=== PATIENT | female | born 1940 | race Caucasian/White ===

== ENCOUNTER 2017-08-06 22:03 | Inpatient (IN) | payer OTHER, SELFPAY ==
[~2017-08-06] VITALS: Ht 152.4 cm; Wt 55.5 kg
[~2017-08-06 22:03] MED LIST: HERBS; LORA1 PO; NAPR550 PO; Percocet 5-3251 EACH PO; RXHYDACE PO; Roxicodone5 MG PO
[2017-08-06 23:02] LABS: BASOPHILS ABSOLUTE AUTO 0.04 K/mm3 (0.00-0.23); BASOPHILS PERCENT AUTO 0 % (0-2); EOSINOPHILS ABSOLUTE AUTO 0.04 K/mm3 (0.00-0.68); EOSINOPHILS PERCENT AUTO 0 % (0-6); Hematocrit 32.5 % (33.0-51.0); Hemoglobin 10.5 g/dL (11.5-16.0); IMMATURE GRAN ABSOLUTE AUTO 0.03 K/mm3 (0.00-0.10); IMMATURE GRAN PERCENT AUTO 0 % (0-1); LYMPHOCYTES ABSOLUTE AUTO 0.98 K/mm3 (0.84-5.20); LYMPHOCYTES PERCENT AUTO 9 % (21-46); MONOCYTES ABSOLUTE AUTO 0.49 K/mm3 (0.16-1.47); MONOCYTES PERCENT AUTO 5 % (4-13); Mean Corpuscular HGB 28.2 pg (26.0-34.0); Mean Corpuscular HGB Conc 32.3 g/dL (31.5-36.5); Mean Corpuscular Volume 87 fL (80-100); Mean Platelet Volume 10.6 fL (9.1-12.4); NEUTROPHILS ABSOLUTE AUTO 9.01 K/mm3 (1.96-9.15); NEUTROPHILS PERCENT AUTO 85 % (41-73); Platelet Count 304 K/mm3 (150-400); RDW Coefficient Variation 12.9 % (11.7-14.2); Red Blood Cell Count 3.73 M/mm3 (3.80-5.20); White Blood Cell Count 10.59 K/mm3 (4.00-11.30)
[2017-08-06 23:22] LABS: Alanine Aminotransfer (ALT/SGP 20 U/L (12-78); Albumin, Blood 3.1 g/dL (3.4-5.0); Albumin/Globulin Ratio 0.7 (0.8-1.8); Alk Phos 157 U/L (50-136); Anion Gap 9 mmol/L (6-16); Aspartate Aminotrans (AST/SGOT 18 U/L (12-37); Bilirubin, Total 0.2 mg/dL (0.1-1.0); Blood Urea Nitrogen 11 mg/dL (8-24); Bun/Creatinine Ratio 20.2 (12.0-20.0); CO2, Blood 24 mmol/L (21-32); Calcium, Blood 8.1 mg/dL (8.5-10.1); Chloride, Blood 108 mmol/L (98-108); Creatinine, Blood 0.54 mg/dL (0.40-1.00); Globulin, Blood 4.2 g/dL (2.2-4.0); Glomerular Filtration Rate >60 (60-); Glucose, Blood 146 mg/dL (70-99); Potassium, Blood 3.4 mmol/L (3.5-5.5); Sodium, Blood 141 mmol/L (136-145); Total Protein, Blood 7.3 g/dL (6.4-8.2)
[2017-08-07 01:16] LABS: International Normalized Ratio 1.01; Prothrombin Time Results 10.5 Sec (9.7-11.5)
[2017-08-09 05:22] LABS: BASOPHILS ABSOLUTE AUTO 0.02 K/mm3 (0.00-0.23); BASOPHILS PERCENT AUTO 0 % (0-2); EOSINOPHILS ABSOLUTE AUTO 0.04 K/mm3 (0.00-0.68); EOSINOPHILS PERCENT AUTO 0 % (0-6); Hematocrit 26.9 % (33.0-51.0); Hemoglobin 9.1 g/dL (11.5-16.0); IMMATURE GRAN ABSOLUTE AUTO 0.04 K/mm3 (0.00-0.10); IMMATURE GRAN PERCENT AUTO 0 % (0-1); LYMPHOCYTES ABSOLUTE AUTO 1.71 K/mm3 (0.84-5.20); LYMPHOCYTES PERCENT AUTO 17 % (21-46); MONOCYTES ABSOLUTE AUTO 1.13 K/mm3 (0.16-1.47); MONOCYTES PERCENT AUTO 11 % (4-13); Mean Corpuscular HGB 28.6 pg (26.0-34.0); Mean Corpuscular HGB Conc 33.8 g/dL (31.5-36.5); Mean Corpuscular Volume 85 fL (80-100); Mean Platelet Volume 10.6 fL (9.1-12.4); NEUTROPHILS ABSOLUTE AUTO 7.12 K/mm3 (1.96-9.15); NEUTROPHILS PERCENT AUTO 71 % (41-73); Platelet Count 237 K/mm3 (150-400); RDW Coefficient Variation 12.9 % (11.7-14.2); RDW Standard Deviation 39.9 fL (35.1-46.3); Red Blood Cell Count 3.18 M/mm3 (3.80-5.20); White Blood Cell Count 10.06 K/mm3 (4.00-11.30)
[2017-08-09 05:43] LABS: Anion Gap 7 mmol/L (6-16); Blood Urea Nitrogen 10 mg/dL (8-24); Bun/Creatinine Ratio 19.8 (12.0-20.0); CO2, Blood 26 mmol/L (21-32); Calcium, Blood 8.4 mg/dL (8.5-10.1); Chloride, Blood 102 mmol/L (98-108); Glomerular Filtration Rate >60 (60-); Glucose, Blood 126 mg/dL (70-99); Potassium, Blood 3.7 mmol/L (3.5-5.5); Sodium, Blood 135 mmol/L (136-145)
== END 2017-08-10 16:31 | DRG 482 ==
LOC: ER 22:03 → SURS 08-07 01:07
PROVIDERS: Hospitalist; Orthopaedic Surgery; Physician Assistant
PROC: 0QS734Z Reposition Left Upper Femur with Internal Fixation Device, Percutaneous Approach (ICD-10-PCS; principal; 2017-08-08 09:00)
DX: S72.142A Displaced intertrochanteric fracture of left femur, initial encounter for closed fracture (principal); D64.9 Anemia, unspecified; E87.6 Hypokalemia; I10 Essential (primary) hypertension; M25.552 Pain in left hip; W18.30XA Fall on same level, unspecified, initial encounter; Z85.3 Personal history of malignant neoplasm of breast; Z86.73 Personal history of transient ischemic attack (TIA), and cerebral infarction without residual deficits; Z90.12 Acquired absence of left breast and nipple
CPT/HCPCS: 36415; 71045; 73502; 80048; 80053; 85025; 85610; 85730; 93005; 93010; 96374; 96375; 96376; 97110; 97162; 97165; 97530; 97535; 99285; C1713; G8978; G8979; G8987; G8988; J0330; J0690; J1170; J2405; J3010; J3480; J7120

== ENCOUNTER 2018-01-01 14:02 | Observation (INO) | payer OTHER, SELFPAY ==
[~2018-01-01] VITALS: Ht 157.5 cm; Wt 56.7 kg
[2018-01-01 15:49] LABS: BASOPHILS ABSOLUTE AUTO 0.04 K/mm3 (0.00-0.23); BASOPHILS PERCENT AUTO 1 % (0-2); EOSINOPHILS ABSOLUTE AUTO 0.03 K/mm3 (0.00-0.68); EOSINOPHILS PERCENT AUTO 0 % (0-6); Hematocrit 33.7 % (33.0-51.0); Hemoglobin 10.8 g/dL (11.5-16.0); IMMATURE GRAN ABSOLUTE AUTO 0.02 K/mm3 (0.00-0.10); IMMATURE GRAN PERCENT AUTO 0 % (0-1); LYMPHOCYTES ABSOLUTE AUTO 1.29 K/mm3 (0.84-5.20); LYMPHOCYTES PERCENT AUTO 18 % (21-46); MONOCYTES ABSOLUTE AUTO 0.73 K/mm3 (0.16-1.47); MONOCYTES PERCENT AUTO 10 % (4-13); Mean Corpuscular HGB 26.9 pg (26.0-34.0); Mean Corpuscular Volume 84 fL (80-100); Mean Platelet Volume 10.4 fL (9.1-12.4); NEUTROPHILS PERCENT AUTO 70 % (41-73); Platelet Count 287 K/mm3 (150-400); RDW Coefficient Variation 15.2 % (11.7-14.2); RDW Standard Deviation 46.2 fL (35.1-46.3); Red Blood Cell Count 4.01 M/mm3 (3.80-5.20); White Blood Cell Count 7.11 K/mm3 (4.00-11.30)
[2018-01-01 16:11] LABS: Alanine Aminotransfer (ALT/SGP 27 U/L (12-78); Albumin, Blood 3.1 g/dL (3.4-5.0); Albumin/Globulin Ratio 0.6 (0.8-1.8); Alk Phos 151 U/L (50-136); Anion Gap 9 mmol/L (6-16); Aspartate Aminotrans (AST/SGOT 25 U/L (12-37); Bilirubin, Total 0.7 mg/dL (0.1-1.0); Blood Urea Nitrogen 7 mg/dL (8-24); Bun/Creatinine Ratio 14.6 (12.0-20.0); CO2, Blood 26 mmol/L (21-32); Calcium, Blood 8.9 mg/dL (8.5-10.1); Chloride, Blood 108 mmol/L (98-108); Creatinine, Blood 0.48 mg/dL (0.40-1.00); Globulin, Blood 4.8 g/dL (2.2-4.0); Glomerular Filtration Rate >60 (60-); Glucose, Blood 93 mg/dL (70-99); Potassium, Blood 3.6 mmol/L (3.5-5.5); Sodium, Blood 143 mmol/L (136-145); Total Protein, Blood 7.9 g/dL (6.4-8.2); Troponin I <0.015 ng/mL (0.000-0.040)
[2018-01-01 16:15] LABS: Thyroid Stimulating Hormone 0.388 uIU/mL (0.360-4.800)
[2018-01-01] MEDS ORDERED: ASCO500 PO (18:08)
[2018-01-01] MEDS ORDERED: CHOL10002 PO (18:09)
[2018-01-01] MEDS ORDERED: B Complex-Foli1 EACH PO (18:10)
[2018-01-01] MEDS ORDERED: MULTI VITAMIN1 EACH PO (18:11)
[2018-01-01] MEDS ORDERED: Calcium + Vita1 EACH PO (18:12)
[2018-01-01] MEDS ORDERED: Vitamin E100 UNIT PO (18:13)
[2018-01-03] MEDS ORDERED: DOCU100 PO (10:07)
[2018-01-03] MEDS ORDERED: HYDR1TAB94 PO (10:08)
== END 2018-01-03 12:49 | disposition home or self-care (01) ==
LOC: ER 14:02 → MEDS 14:03 → ER 16:58 → MEDS 16:58 → ENPENDDIS 01-03 10:00 → MEDS 01-03 12:49
PROVIDERS: Emergency Medicine
DX: M80.08XA Age-related osteoporosis with current pathological fracture, vertebra(e), initial encounter for fracture (principal); M53.3 Sacrococcygeal disorders, not elsewhere classified; G47.33 Obstructive sleep apnea (adult) (pediatric); I10 Essential (primary) hypertension; M19.90 Unspecified osteoarthritis, unspecified site; Z85.3 Personal history of malignant neoplasm of breast; F44.4 Conversion disorder with motor symptom or deficit; Z99.89 Dependence on other enabling machines and devices; Z86.718 Personal history of other venous thrombosis and embolism; Z88.6 Allergy status to analgesic agent; Z79.01 Long term (current) use of anticoagulants
CPT/HCPCS: 36415; 72131; 80053; 84443; 84484; 85025; 93005; 93010; 94762; 97110; 97161; 99285; G0378; G8978; G8979

== ENCOUNTER 2018-11-05 10:50 | Inpatient (IN) | payer OTHER ==
[~2018-11-05] VITALS: Ht 149.9 cm; Wt 65.8 kg
[~2018-11-05 10:50] MED LIST changes: +ASCO500 PO; +B Complex-Foli1 EACH PO; +CHOL10002 PO; +Calcium + Vita1 EACH PO; +DOCU100 PO; +HYDR1TAB94 PO; +MULTI VITAMIN1 EACH PO; +Vitamin E100 UNIT PO
[2018-11-05 11:50] LABS: BASOPHILS ABSOLUTE AUTO 0.01 K/mm3 (0.00-0.23); BASOPHILS PERCENT AUTO 0 % (0-2); EOSINOPHILS PERCENT AUTO 0 % (0-6); Hematocrit 29.9 % (33.0-51.0); Hemoglobin 9.6 g/dL (11.5-16.0); IMMATURE GRAN ABSOLUTE AUTO 0.09 K/mm3 (0.00-0.10); IMMATURE GRAN PERCENT AUTO 1 % (0-1); LYMPHOCYTES ABSOLUTE AUTO 1.13 K/mm3 (0.84-5.20); LYMPHOCYTES PERCENT AUTO 8 % (21-46); MONOCYTES ABSOLUTE AUTO 0.89 K/mm3 (0.16-1.47); MONOCYTES PERCENT AUTO 6 % (4-13); Mean Corpuscular HGB 28.9 pg (26.0-34.0); Mean Corpuscular HGB Conc 32.1 g/dL (31.5-36.5); Mean Corpuscular Volume 90 fL (80-100); Mean Platelet Volume 11.6 fL (9.1-12.4); NEUTROPHILS ABSOLUTE AUTO 12.24 K/mm3 (1.96-9.15); NEUTROPHILS PERCENT AUTO 85 % (41-73); Platelet Count 255 K/mm3 (150-400); RDW Coefficient Variation 13.6 % (11.7-14.2); RDW Standard Deviation 44.7 fL (35.1-46.3); Red Blood Cell Count 3.32 M/mm3 (3.80-5.20); White Blood Cell Count 14.36 K/mm3 (4.00-11.30)
[2018-11-05 12:12] LABS: Alanine Aminotransfer (ALT/SGP 28 U/L (12-78); Albumin, Blood 3.1 g/dL (3.4-5.0); Albumin/Globulin Ratio 0.7 (0.8-1.8); Alk Phos 99 U/L (50-136); Anion Gap 11 mmol/L (6-16); Aspartate Aminotrans (AST/SGOT 30 U/L (12-37); Bilirubin, Total 0.5 mg/dL (0.1-1.0); Blood Urea Nitrogen 27 mg/dL (8-24); Bun/Creatinine Ratio 43.3 (12.0-20.0); CO2, Blood 23 mmol/L (21-32); Calcium, Blood 9.9 mg/dL (8.5-10.1); Chloride, Blood 109 mmol/L (98-108); Creatinine, Blood 0.62 mg/dL (0.40-1.00); Globulin, Blood 4.3 g/dL (2.2-4.0); Glomerular Filtration Rate >60 (60-); Glucose, Blood 165 mg/dL (70-99); Potassium, Blood 3.7 mmol/L (3.5-5.5); Sodium, Blood 143 mmol/L (136-145); Total Protein, Blood 7.4 g/dL (6.4-8.2)
[2018-11-05] MEDS ORDERED: ALEN70 PO (12:48)
[2018-11-05 17:06] LABS: Source, Urine Catheter
[2018-11-05 17:29] LABS: Bilirubin, Urine Neg (Neg); Blood, Urine 2+ (Neg); Glucose Qualitative, Urine Neg (Neg); Ketones, Urine 2+ (Neg); Leukocyte Esterase, Urine 1+ (Neg); Nitrite, Urine Neg (Neg); Protein, Urine 1+ (Neg); Urobilinogen, Urine 1+ (Normal)
[2018-11-05 17:45] LABS: Percent Saturation 11.3 % (15.0-50.0)
--- NOTE | 2018-11-05 17:58 | NUR ---
PT VERIFIED TO BE DNR BY OTHER RN Gavi, PURPLE BRACELET PLACED.
[2018-11-05 18:02] LABS: Appearance, Urine Cloudy (Clear); Color, Urine Yellow (P-Yellow)
[2018-11-05 18:06] LABS: Hyaline Casts 0-2 /lpf (0-2)
[2018-11-05 18:08] LABS: Bacteria Many /hpf; Red Blood Cells, Urine 0-2 /hpf (0-2); Squamous Epithelial Cells Few /hpf (Few); White Blood Cells, Urine 0-2 /hpf (0-5)
--- NOTE | 2018-11-05 18:57 | NUR ---
SHIFT SUMMARY PROVIDER IN TO SEE PT TODAY. PT SCHEDULED FOR SURGERY IN MORNING. PT REPORTS A LOT OF PAIN WITH MOVEMENT, BUT OTHERWISE HAS BEEN RESTING IN BED. PT HAS BEEN CONFUSED AT TIMES. CATHETER IN PLACED BY FEMALE MICRO PALEONTOLOGIST. IT IS SECURED AND DRAINING. PT HAS BEEN USING BEDPAN WHEN NEEDED. PT DRINKING FLUIDS AND ATE A YOGURT THIS EVENING. FAMILY HAS BEEN IN TO SEE PT TODAY.
--- NOTE | 2018-11-05 21:46 | NUR ---
2146: ASSUMED CARE FROM PREVIOUS RN. PT RESTING COMFORTABLY IN BED AND DENIES PAIN OR NEED @ THIS TIME. CALL LIGHT IN REACH.
[2018-11-06 05:12] LABS: BASOPHILS ABSOLUTE AUTO 0.03 K/mm3 (0.00-0.23); BASOPHILS PERCENT AUTO 0 % (0-2); EOSINOPHILS ABSOLUTE AUTO 0.01 K/mm3 (0.00-0.68); EOSINOPHILS PERCENT AUTO 0 % (0-6); Hematocrit 21.8 % (33.0-51.0); Hemoglobin 7.1 g/dL (11.5-16.0); IMMATURE GRAN ABSOLUTE AUTO 0.08 K/mm3 (0.00-0.10); IMMATURE GRAN PERCENT AUTO 1 % (0-1); LYMPHOCYTES ABSOLUTE AUTO 2.11 K/mm3 (0.84-5.20); LYMPHOCYTES PERCENT AUTO 14 % (21-46); MONOCYTES ABSOLUTE AUTO 1.45 K/mm3 (0.16-1.47); MONOCYTES PERCENT AUTO 9 % (4-13); Mean Corpuscular HGB 28.9 pg (26.0-34.0); Mean Corpuscular HGB Conc 32.6 g/dL (31.5-36.5); Mean Corpuscular Volume 89 fL (80-100); Mean Platelet Volume 11.5 fL (9.1-12.4); NEUTROPHILS ABSOLUTE AUTO 11.73 K/mm3 (1.96-9.15); NEUTROPHILS PERCENT AUTO 76 % (41-73); Platelet Count 201 K/mm3 (150-400); RDW Coefficient Variation 14.2 % (11.7-14.2); RDW Standard Deviation 45.7 fL (35.1-46.3); Red Blood Cell Count 2.46 M/mm3 (3.80-5.20); White Blood Cell Count 15.41 K/mm3 (4.00-11.30)
[2018-11-06 05:27] LABS: Anion Gap 5 mmol/L (6-16); Blood Urea Nitrogen 22 mg/dL (8-24); Bun/Creatinine Ratio 37.2 (12.0-20.0); CO2, Blood 26 mmol/L (21-32); Calcium, Blood 8.1 mg/dL (8.5-10.1); Chloride, Blood 114 mmol/L (98-108); Creatinine, Blood 0.59 mg/dL (0.40-1.00); Glomerular Filtration Rate >60 (60-); Glucose, Blood 108 mg/dL (70-99); Potassium, Blood 4.5 mmol/L (3.5-5.5); Sodium, Blood 145 mmol/L (136-145)
--- NOTE | 2018-11-06 07:39 | NUR ---
SUMMARY: NO ACUTE CHANGES THIS SHIFT. VSS, AFEBRILE, PT SLEPT WELL; ALERT AND ANSWERS QUESTIONS APPROPRIATELY. NPO AFTER MIDNIGHT, NEW 18G PERIPHERAL IV AND SURGICAL PACKET PREPARED IN ANTICIPATION OF ORIF OF LEFT HIP TODAY WITH DR. PHAN. AWAIT SON'S ARRIVAL PRE-OP FOR CONSENTS AND COMPLETION OF ADMIT HISTROY.
--- NOTE | 2018-11-06 10:21 | NUR ---
PT LEFT FOR SURGERY AT 6233
--- NOTE | 2018-11-06 10:34 | NUR ---
SHIFT ASSESSMENT SHIFT ASSESSMENT PERFORMED WITH COLLIN CRANE OILER. DOCUMENTATION REVIEWED; THIS RN AGREES WITH ASSESSMENT DOCUMENTATION.
--- NOTE | 2018-11-06 11:09 | NUR ---
11/06/18 1109 Estefany Bond PT ENTERED OR WITH YANG CATHETER
--- NOTE | 2018-11-06 15:10 | NUR ---
REPORT CALLED TO GIANA OLIVER IN ICU.
--- NOTE | 2018-11-06 15:15 | NUR ---
ARIVAL: PT ARIVES TO ICU 3. NO FAMILY NOTED IN WAITING ROOM. PT IS UNABLE TO STATE NAME OR DATE OF . OPENS EYES TO VERBAL STEMULI. L PEDAL PULSES ARE STRONG. L LEG WRAPPED FROM JUST BELOW HIP DOWN TO ANKLE, COLOR APPEARS TO BE PINK, LIMB WARM TO TOUCH, AND PT ABLE TO MOVE TOES. WILL ASSESS FURTHER AND CONTINUE TO MONITOR.
--- NOTE | 2018-11-06 16:05 | NUR ---
MENTATION: PT IS ABLE TO STATE NAME AND DATE OF , IS AWARE OF HER SURROUNDINGS AND FAMILY. PT IS STILL DROUSY AND WANTING TO SLEEP.
--- NOTE | 2018-11-06 16:21 | NUR ---
CALL TO EMILIE: CALLED TO [facility] IV FLUIDS TO RUN. RECEIVED ORDER TO RUN THE ORDER FOR D5W1/2NS KCL @ 80 ML/HR. RECEIVED ORDERS TO CALL HOSPITALIST ON CASE TO DISCUSS PT ANEMIA AND POSSIBLE HORMONAL OR IRON THEROPY D/T PT BEING ONE OF ADAN'S WHITNESS AND NO ACEPTANCE OF BLOOD PRODUCTS.
--- NOTE | 2018-11-06 16:30 | NUR ---
HOSPITALIST: CALL TO DR STEINBERG TO UPDATE OF PT ARIVAL TO UNIT AFTER SURGICAL PROCEDURE. INFORMED OF PT BEING ONE OF MALIKS WHITNESSES AND WILL NOT ACCEPT BLOOD PRODUCTS AND DR PHAN'S REQUEST TO FOLLOW UP ON PT ANEMIA LUIS. DR STEINBERG STATES HE WILL REVIEW AND PLACE ORDERS.
--- NOTE | 2018-11-06 16:49 | NUR ---
UPDATE SON: UPDATED ELVIN THE SON OF MEDICATIONS TO BE GIVEN TO ASSIST WITH LOW HGB TO PREVENT NEED FOR BLOOD TRANSFUSION D/T PT NOT ACCEPTING BLOOD PRODUCTS. SON LEAVING AT THIS TIME. GAVE UNIT PHONE NUMBER.
--- NOTE | 2018-11-06 18:01 | NUR ---
SHIFT SUMMARY: NO ACUTE DISTRESS TO PT SINCE ARIVAL TO UNIT. PT STATES MINIMAL PAIN AT THIS TIME. SCD IN PLACE. PT RECEIVED IRON AND EPOGEN AND IRON PANNEL DRAWN. VSS WILL CONTINUE TO MONITOR AND REPORT TO PARAG RN.
[2018-11-06 18:12] LABS: Percent Saturation 12.4 % (15.0-50.0)
--- NOTE | 2018-11-06 19:15 | NUR ---
ASSUMING CARE OF PT AT THIS TIME. PT REPORT RECEIVED AT BEDSIDE WITH OFFGOING NURSE, ARNAUD OLIVER. PT LAYING IN BED, SLEEPING UPON ENTERING THE ROOM. VS STABLE - SEE VS FS. PT DOES NOT APPEAR TO BE IN DISTRESS AT THIS TIME. WILL REVIEW PLAN OF CARE.
--- NOTE | 2018-11-06 19:30 | NUR ---
ASSESSMENT PT CALM, QUIET, COOPERATIVE, RESPONDS TO VERBAL STIMULI, SPONT OPENS EYES, A&O TO SELF AND PLACE, UNABLE TO STATE DATE/TIME/EVENT, OCC SLOW TO RESPOND, SLIGHT CONFUSION, FOLLOWS COMMANDS. SENSATION INTACT. DENIES N/T. PT HUTTON. WEAKNESS NOTED. PT WIGGLES TOES. PT ART SPECIALIST EQUALLY. PT ASSISTS WITH REPOSITIONING. PT C/O L LEG PAIN/DISCOMFORT THAT STARTED POST SURGERY. MEDICATED WITH TYLENOL AND UTILIZED NONPHARM METHODS. PT STATES PAIN IS TOLERABLE AFTER ADMINISTEIRNG TYLENOL. PT SLEEPING IN BED WITH DECREASED STIMULI. LUNGS CLEAR, LOWER LOBES DIMINIHSED. PT ON 2L NC. OXY SAT >95%> RR 14. DENIES SOB. NO COUGHING. SHALLOW BREAHTING. IS AT BEDSIDE. EDUCATED PT ABOUT IS. PT DEMONSTRATED HOW TO IS. AFEBRILE. ST. HR 100'S. BP STABLE - SEE VS FS. STRONG PULSES. WARM, PINK SKIN. POST SURGERICAL DRESSING TO LLE - DRESSING C/D/I. HYPOACTIVE BT X4 QUADRANTS. ABD SOFT, NONTENDER. PT STATES ABD DIST IS NORMAL. NO N/V. NO BM. PT TOLERATING PO WATER. F/C: CLEAR YELLOW URINE NOTED. PIV X1. D5W 1/2NS WITH 20 KCL AT 80 ML/HR.
[2018-11-07 03:33] LABS: BASOPHILS ABSOLUTE AUTO 0.01 K/mm3 (0.00-0.23); BASOPHILS PERCENT AUTO 0 % (0-2); EOSINOPHILS PERCENT AUTO 0 % (0-6); Hemoglobin 6.9 g/dL (11.5-16.0); IMMATURE GRAN ABSOLUTE AUTO 0.05 K/mm3 (0.00-0.10); IMMATURE GRAN PERCENT AUTO 0 % (0-1); LYMPHOCYTES ABSOLUTE AUTO 1.62 K/mm3 (0.84-5.20); LYMPHOCYTES PERCENT AUTO 13 % (21-46); MONOCYTES ABSOLUTE AUTO 1.26 K/mm3 (0.16-1.47); MONOCYTES PERCENT AUTO 10 % (4-13); Mean Corpuscular HGB Conc 31.4 g/dL (31.5-36.5); Mean Corpuscular Volume 89 fL (80-100); Mean Platelet Volume 11.6 fL (9.1-12.4); NEUTROPHILS ABSOLUTE AUTO 9.79 K/mm3 (1.96-9.15); NEUTROPHILS PERCENT AUTO 77 % (41-73); Platelet Count 190 K/mm3 (150-400); RDW Coefficient Variation 13.9 % (11.7-14.2); RDW Standard Deviation 44.8 fL (35.1-46.3); Red Blood Cell Count 2.46 M/mm3 (3.80-5.20); White Blood Cell Count 12.73 K/mm3 (4.00-11.30)
[2018-11-07 03:49] LABS: Anion Gap 3 mmol/L (6-16); Blood Urea Nitrogen 10 mg/dL (8-24); Bun/Creatinine Ratio 17.9 (12.0-20.0); CO2, Blood 27 mmol/L (21-32); Calcium, Blood 7.5 mg/dL (8.5-10.1); Chloride, Blood 112 mmol/L (98-108); Creatinine, Blood 0.56 mg/dL (0.40-1.00); Glomerular Filtration Rate >60 (60-); Glucose, Blood 133 mg/dL (70-99); Sodium, Blood 142 mmol/L (136-145)
--- NOTE | 2018-11-07 04:00 | NUR ---
DR. HERBERTH KEVIN IN ICU AT THIS TIME. PT CONTINUES TO REFUSE BLOOD TRANSFUSIONS AT THIS TIME. INFORMED DR. KEVIN OF AM LABS. NO NEW ORDERS AT THIS TIME.
--- NOTE | 2018-11-07 05:16 | NUR ---
SHIFT ASSESSMENT NO ACUTE CHANGES NOTED T/O SHIFT. PT SLEPT T/O SHIFT. PT CALM, QUIET, COOPERATIVE, RESPONDS TO VERBAL STIMULI, SPONT OPENS EYES, A&O TO SELF AND PLACE, UNABLE TO STATE DATE/TIME/EVENT, OCC SLOW TO RESPOND, SLIGHT CONFUSION, FOLLOWS COMMANDS. SENSATION INTACT. DENIES N/T. PT HUTTON. WEAKNESS NOTED. PT WIGGLE TOES. PT DRAG CAR RACER EQUALLY. PT ASSISTS WITH REPOSITIONING. PT C/O L LEG PAIN/DISCOMFORT THAT STARTED POST SURGERY T/O SHIFT. MEDICATED WITH TYLENOL AND UTILIZED NONPHARM METHODS T/O SHIFT. PT STATED PAIN IS TOLERABLE AFTER ADMNSITEIRNG TYLENOL. PT SLEEPS WITH DECREASED STIMULI. LUNGS CLEAR, LOWER LOBES DIMINIHSED. PT ON 2L NC WHILE SLEEPING. OXY SAT >90% ON 2L WHILE SLEEPING. OXY SAT <90% WHILE ON RA AND SLEEPING. PT ON RA WHILE AWAKE. OXY SAT >90% WHILE ON RA AND AWAKE. DENIES SOB. NO COUGHING. SHALLOW BREATHING. IS AT BEDSIDE. AFEBRILE. SR TO ST WITH OCC PVC'S AND PAC'S. HR 80'S TO 110'S. BP STABLE - SEE VS FS. STRONG PULSES. WARM, PINK SKIN. POST SURGERICAL DRESSING TO LLE - DRESSING C/D/I. HYPOACTIVE BT X4 QUADRANTS. ABD SOFT, NONTENDER. PT STATES ABD DIST IS NORMAL. NO N/V. NO BM. PT TOLERATES PO WATER. F/C: CLEAR, YELLOW URINE NOTED. PIV X1. D5W 1/2 NS WITH 20 MEQ OF KCL AT 80 ML/HR. WILL CONT TO MONITOR PT AND WILL PROVIDE BEDSIDE REPORT TO ONCOMING NURSE THIS AM.
--- NOTE | 2018-11-07 07:36 | NUR ---
ASSUMED CARE: RECEIVED REPORT FROM NOC BENITO Díaz WHEN ENTERING ROOM PT APPEARS TO BE SLEEPING WITH WASH CLOTH COVERING HER EYES. WAKES EASILY. UPON ASSESSMENT OF PT L LEG, SHE LUCINA OUT IN PAIN WITH MOVEMENT OF HER ANKLE. FOOD AND ANKLE OF THE L LEG APPEAR TO HAVE SOME MILD NON PITTING EDEMA. PULSES ARE PRESENT AND STRONG, L FOOT IS WARM AND PINK. D51/2NS /C 20KCL IS CURRENTLY RUNNING AT 80ML/HR, NEW BAG SPIKED AND RUNNING. NO ACUTE DISTRESS NOTED. WILL ASSESS FURTHER AND CONTINUE TO MONITOR.
--- NOTE | 2018-11-07 08:44 | NUR ---
L FOOT NUMBNESS & PAIN: DISCUSSED WITH TEACHER EMOTIONALLY IMPAIRED ABOUT EDEMA IN L FOOT AND ANKLE, PAIN IN ANKLE AND SOME NUMBNESS. RECOMENDED LOOSENING WRAP SLIGHTLY TO SEE IF RESOLVES. LOOSENED WRAP AT THIS TIME RIGHT ABOVE L FOOT AND ANKLE. WILL CONTINUE TO MONITOR AND ASSESS NEED TO NOTIFY DR. HELM AT BEDSIDE.
--- NOTE | 2018-11-07 17:31 | NUR ---
SHIFT SUMMARY PT WAS AN ICU TRANSFER AT 1430 TODAY. STABLE AND DOING WELL. PAIN MANAGED WITH 5MG OXYCODONE AND 650MG TYLENOL. WORKED WITH THERAPY THIS AFTERNOON AND DANGLED, 2 PERSON MAX ASSIST WITH FWW AND GAITBELT. ALERT AND ORIENTATED X3, WITH HISTORY OF DEMENTIA. DRESSING ON LEFT HIP IS C/D/I WITH NED WRAP IN PLACE. ON 2L OF OXYGEN WITH 99% SATURATION.
[2018-11-08 04:30] LABS: BASOPHILS ABSOLUTE AUTO 0.03 K/mm3 (0.00-0.23); BASOPHILS PERCENT AUTO 0 % (0-2); EOSINOPHILS ABSOLUTE AUTO 0.19 K/mm3 (0.00-0.68); EOSINOPHILS PERCENT AUTO 2 % (0-6); Hematocrit 19.4 % (33.0-51.0); Hemoglobin 6.1 g/dL (11.5-16.0); IMMATURE GRAN ABSOLUTE AUTO 0.09 K/mm3 (0.00-0.10); IMMATURE GRAN PERCENT AUTO 1 % (0-1); LYMPHOCYTES ABSOLUTE AUTO 2.07 K/mm3 (0.84-5.20); LYMPHOCYTES PERCENT AUTO 16 % (21-46); MONOCYTES ABSOLUTE AUTO 1.49 K/mm3 (0.16-1.47); MONOCYTES PERCENT AUTO 12 % (4-13); Mean Corpuscular HGB 28.8 pg (26.0-34.0); Mean Corpuscular HGB Conc 31.4 g/dL (31.5-36.5); Mean Corpuscular Volume 92 fL (80-100); Mean Platelet Volume 11.4 fL (9.1-12.4); NEUTROPHILS ABSOLUTE AUTO 8.77 K/mm3 (1.96-9.15); NEUTROPHILS PERCENT AUTO 69 % (41-73); NRBC ABSOLUTE 0.03 K/mm3 (0.00-0.02); NRBC Auto 0.2 /100 WBC (0.0-0.2); Platelet Count 189 K/mm3 (150-400); RDW Coefficient Variation 14.3 % (11.7-14.2); RDW Standard Deviation 46.7 fL (35.1-46.3); Red Blood Cell Count 2.12 M/mm3 (3.80-5.20); White Blood Cell Count 12.64 K/mm3 (4.00-11.30)
[2018-11-08 04:46] LABS: Anion Gap 4 mmol/L (6-16); Blood Urea Nitrogen 10 mg/dL (8-24); Bun/Creatinine Ratio 17.1 (12.0-20.0); CO2, Blood 26 mmol/L (21-32); Calcium, Blood 7.4 mg/dL (8.5-10.1); Chloride, Blood 112 mmol/L (98-108); Creatinine, Blood 0.58 mg/dL (0.40-1.00); Glomerular Filtration Rate >60 (60-); Glucose, Blood 101 mg/dL (70-99); Potassium, Blood 4.4 mmol/L (3.5-5.5); Sodium, Blood 142 mmol/L (136-145)
--- NOTE | 2018-11-08 05:18 | NUR ---
SUMMARY POD 2 S/P LEFT DISTAL FEMUR ORIF. PT DID GREAT DURING THE NIGHT. SLEPT T/O SHIFT. DRESSING TO LLE IS CDI AND KEPT ELEVATED. GOOD CIRC CHECKS. H/H CONTINUES TO DROP BUT REMAINS ASYMPTOMATIC. PLAN FOR PT/OT TO HELP INCREASE MOBILITY IF PT TOLERATES. TREY PERALTA WILL BE DC'D THIS AM. CALL LIGHT IN REACH. WILL REPORT OFF TO NEXT SHIFT.
--- NOTE | 2018-11-08 13:15 | NUR ---
Initial palliative care consult: Mayela is an 78 year old lady who was admitted on 11/05/18 for a femur fracture. She has a history of NAYELI, dementia, breast CA, osteoporosis. During my visit with her today, she is alert and oriented but somewhat forgetful at times. She states that she lives alone. She receives meals on wheels and per staff report, [facility] volunteers are the ones who found her down with a femur fracture. She states her son and DIL live locally and help her when she needs assistance. She states she cares for herself but doesn't do housework anymore. She reports her family helps out when needed. She had an ORIF on 11/06 to repair her fracture. Nursing reports that she is unable to bear much weight at this time and is unable to stand form more than a couple seconds. Pt will benefit from SNF for rehab as going home alone would put her at high risk for falls and would be unsafe at this time. Nursing reports trying tylenol along with the narcotic pain medication to improve her pain management. No family currently in room visiting during my visit. Toward the end of the visit, pt is closing eyes and appears to be drifting off. Staff reports she was medicated for pain prior to my arrival. Appetite is fair at this time. Pt voices no requests. PC will follow pt for symptom management and will work with pt and family for a safe discharge plan.
--- NOTE | 2018-11-08 16:28 | NUR ---
SHIFT SUMMARY PT WORKED WITH THERAPY ALTHOUGH IS MAKING VERY SLOW PROGRESS. REPORTS FEELING TIRED AND WAS EDUCATED ON ANEMIA. PAIN MANAGEMENT IS A SLIGHT STRUGGLE. 1 OXYCODONE DOES NOT MANAGE PAIN WELL WHILE 2 MAKES HER DROWSY. WILL PERHAPS TRY NORCO INSTEAD THIS IS ON THE EMAR. TOLERATED DIET. INCONTINENT IN ATTENDS.
--- NOTE | 2018-11-09 05:43 | NUR ---
SHIFT SUMMARY PT ALERT T/O SHIFT. POD#3 L HIP PIN; NED WRAP FROM L THIGH OVER L FOOT CDI T/O SHIFT. RA; PT DENIES SOB, CP, NAUSEA AND DIZZINESS T/O SHIFT. PAIN MANAGED WITH PO MEDICATIONS PER EMAR. BLE ELEVATED; SCD'S TO BLE'S. ATTENDS IN PLACE; PT ASSISTED WITH BED SAPRROW PRN. SIDE RAILS AND BED ALARM FOR SAFETY. CALL LIGHT IN REACH; PT DEMONSTRATES USE. WCTM UNTIL REPORT TO DAY SHIFT RN.
[2018-11-09 13:20] LABS: Hemoglobin 6.5 g/dL (11.5-16.0)
--- NOTE | 2018-11-09 15:12 | NUR ---
SHIFT SUMMARY PT HAS BEEN UPBEAT TODAY. PLEASANT AND COOPERATIVE. SHOWING IMPROVEMENT WITH THERAPY, EDEMA AND PAIN MANAGEMENT. POSS D/C TO SNF TODAY.
--- NOTE | 2018-11-09 15:34 | NUR ---
ASSUMED CARE OF PATIENT AT THIS TIME. PT ASSISTED TO BEDPAN WITH COLOR MATCHER FOR BM. WILL CONT TO MONITOR AND TREAT.
--- NOTE | 2018-11-09 17:34 | NUR ---
discharge: DC TO SNF AT THIS TIME. REPORT GIVEN TO ACCEPTING RN. IV DC'D PRIOR TO DISCHARGE. PT MEDICATED FOR PAIN. TRANSFER VIA [facility].
== END 2018-11-09 17:49 | DRG 481 ==
LOC: ER 10:50 → ICUE 13:19 → SURS 13:19 → ICUE 11-06 15:15 → SURS 11-07 14:39
PROVIDERS: Emergency Medicine; Internal Medicine; Orthopaedic Surgery; ADMIT Internal Medicine
PROC: 0QPC04Z Removal of Internal Fixation Device from Left Lower Femur, Open Approach (ICD-10-PCS; 2018-11-06)
PROC: 0QSC04Z Reposition Left Lower Femur with Internal Fixation Device, Open Approach (ICD-10-PCS; principal; 2018-11-06 08:30)
DX: S72.302A Unspecified fracture of shaft of left femur, initial encounter for closed fracture (principal); E44.0 Moderate protein-calorie malnutrition; D62 Acute posthemorrhagic anemia; M97.02XA Periprosthetic fracture around internal prosthetic left hip joint, initial encounter; S72.452A Displaced supracondylar fracture without intracondylar extension of lower end of left femur, initial encounter for closed fracture; M81.0 Age-related osteoporosis without current pathological fracture; F03.90 Unspecified dementia, unspecified severity, without behavioral disturbance, psychotic disturbance, mood disturbance, and anxiety; I10 Essential (primary) hypertension; Z66 Do not resuscitate; Z68.24 Body mass index [BMI] 24.0-24.9, adult; W19.XXXA Unspecified fall, initial encounter; G47.33 Obstructive sleep apnea (adult) (pediatric); Z85.3 Personal history of malignant neoplasm of breast; Z86.718 Personal history of other venous thrombosis and embolism; D63.8 Anemia in other chronic diseases classified elsewhere; D50.9 Iron deficiency anemia, unspecified
CPT/HCPCS: 36415; 71045; 73502; 73552; 80048; 80053; 81001; 82728; 83540; 83550; 85014; 85018; 85025; 93005; 93010; 96361; 96374; 96375; 97110; 97162; 97530; 99284-25; A9270-GY; C1713; C1769; J0690; J0885; J1100; J1170; J2370; J2405; J2704; J2916; J3010; J7030; J7120

== ENCOUNTER 2019-06-02 09:03 | Emergency (ER) | payer OTHER ==
[~2019-06-02] VITALS: Ht 152.4 cm; Wt 47.6 kg
[~2019-06-02 09:03] MED LIST changes: +ALEN70 PO
[2019-06-02] MEDS ORDERED: VIT1CAPS12 (09:15)
[2019-06-02] MEDS ORDERED: Refresh Eye Dr1 EACH OP (09:16)
[2019-06-02] MEDS ORDERED: ASCO500 PO (09:16)
[2019-06-02] MEDS ORDERED: ACET500 PO (09:16)
[2019-06-02] MEDS ORDERED: TOCO1000 PO (09:17)
[2019-06-02] MEDS ORDERED: ERGO400 PO (09:17)
[2019-06-02 10:03] LABS: BASOPHILS ABSOLUTE AUTO 0.04 K/mm3 (0.00-0.23); BASOPHILS PERCENT AUTO 1 % (0-2); EOSINOPHILS ABSOLUTE AUTO 0.16 K/mm3 (0.00-0.68); EOSINOPHILS PERCENT AUTO 3 % (0-6); Hematocrit 36.5 % (33.0-51.0); Hemoglobin 11.7 g/dL (11.5-16.0); IMMATURE GRAN ABSOLUTE AUTO 0.01 K/mm3 (0.00-0.10); IMMATURE GRAN PERCENT AUTO 0 % (0-1); LYMPHOCYTES ABSOLUTE AUTO 1.47 K/mm3 (0.84-5.20); LYMPHOCYTES PERCENT AUTO 25 % (21-46); MONOCYTES ABSOLUTE AUTO 0.51 K/mm3 (0.16-1.47); MONOCYTES PERCENT AUTO 9 % (4-13); Mean Corpuscular HGB 28.1 pg (26.0-34.0); Mean Corpuscular HGB Conc 32.1 g/dL (31.5-36.5); Mean Corpuscular Volume 88 fL (80-100); Mean Platelet Volume 10.7 fL (9.1-12.4); NEUTROPHILS PERCENT AUTO 63 % (41-73); Platelet Count 340 K/mm3 (150-400); RDW Coefficient Variation 13.2 % (11.7-14.2); RDW Standard Deviation 42.6 fL (35.1-46.3); Red Blood Cell Count 4.16 M/mm3 (3.80-5.20); White Blood Cell Count 5.89 K/mm3 (4.00-11.30)
[2019-06-02 10:18] LABS: Alanine Aminotransfer (ALT/SGP 17 U/L (12-78); Albumin, Blood 2.8 g/dL (3.4-5.0); Albumin/Globulin Ratio 0.7 (0.8-1.8); Alk Phos 104 U/L (50-136); Anion Gap 6 mmol/L (6-16); Aspartate Aminotrans (AST/SGOT 13 U/L (12-37); Bilirubin, Total 0.3 mg/dL (0.1-1.0); Blood Urea Nitrogen 8 mg/dL (8-24); Bun/Creatinine Ratio 15.1 (12.0-20.0); CO2, Blood 28 mmol/L (21-32); Calcium, Blood 8.5 mg/dL (8.5-10.1); Chloride, Blood 106 mmol/L (98-108); Creatinine, Blood 0.53 mg/dL (0.40-1.00); Globulin, Blood 4.1 g/dL (2.2-4.0); Glomerular Filtration Rate >60 (60-); Glucose, Blood 111 mg/dL (70-99); Potassium, Blood 3.4 mmol/L (3.5-5.5); Sodium, Blood 140 mmol/L (136-145); Total Protein, Blood 6.9 g/dL (6.4-8.2); Troponin I <0.015 ng/mL (0.000-0.040)
[2019-06-02 12:09] LABS: Source, Urine Voided
[2019-06-02 12:12] LABS: Bilirubin, Urine Neg (Neg); Blood, Urine 1+ (Neg); Glucose Qualitative, Urine Neg (Neg); Ketones, Urine 1+ (Neg); Leukocyte Esterase, Urine 1+ (Neg); Nitrite, Urine Neg (Neg); Protein, Urine Neg (Neg); Urobilinogen, Urine NORM (Normal)
[2019-06-02 12:27] LABS: Appearance, Urine Cloudy (Clear); Color, Urine Yellow (P-Yellow)
[2019-06-02 12:32] LABS: White Blood Cells, Urine 25-50 /hpf (0-5)
[2019-06-02 12:33] LABS: Bacteria Many /hpf; Squamous Epithelial Cells Few /hpf (Few)
[2019-06-02] MEDS ORDERED: Pepcid20 MG PO (13:00)
== END 2019-06-02 13:36 | disposition home or self-care (01) ==
LOC: ER 09:03
PROVIDERS: Emergency Medicine
DX: R10.13 Epigastric pain (principal); R82.81 Pyuria; F32.9 Major depressive disorder, single episode, unspecified; Z85.3 Personal history of malignant neoplasm of breast; Z88.8 Allergy status to other drugs, medicaments and biological substances; Z79.899 Other long term (current) drug therapy
CPT/HCPCS: 71045; 80053; 81001; 83690; 83880; 84484; 85025; 93005; 93010; 96361; 96374; 96375; 99285-25; J2405; J3010; J7030

== ENCOUNTER 2019-09-28 23:44 | Emergency (ER) | payer OTHER ==
[~2019-09-28] VITALS: Ht 152.4 cm; Wt 54.4 kg
[~2019-09-28 23:44] MED LIST changes: +ACET500 PO; +ERGO400 PO; +Pepcid20 MG PO; +Refresh Eye Dr1 EACH OP; +TOCO1000 PO; +VIT1CAPS12
[2019-09-28] MEDS ORDERED: AMIT10 PO (23:54)
[2019-09-28] MEDS ORDERED: CALCIUM CARBON500 M3 PO (23:55)
[2019-09-28] MEDS ORDERED: B-121000 MC4 PO (23:55)
[2019-09-28] MEDS ORDERED: ESCITALOPRAM OX10 M1 PO (23:55)
[2019-09-28] MEDS ORDERED: ALEN70 PO (23:56)
[2019-09-28] MEDS ORDERED: THERA1 EACH PO (23:56)
[2019-09-28] MEDS ORDERED: Ferrous Sulfat325 M2 PO (23:56)
[2019-09-28] MEDS ORDERED: PANT40 PO (23:57)
[2019-09-28] MEDS ORDERED: MULTIPLE VITAM1 EACH PO (23:57)
[2019-09-28] MEDS ORDERED: TRIM100 PO (23:57)
[2019-09-28] MEDS ORDERED: Fruity C250 MG PO (23:58)
[2019-09-28] MEDS ORDERED: VITAMIN D35000 UNI2 PO (23:58)
[2019-09-28] MEDS ORDERED: ACET500 PO (23:58)
[2019-09-29 01:28] LABS: BASOPHILS ABSOLUTE AUTO 0.06 K/mm3 (0.00-0.23); BASOPHILS PERCENT AUTO 1 % (0-2); EOSINOPHILS ABSOLUTE AUTO 0.36 K/mm3 (0.00-0.68); EOSINOPHILS PERCENT AUTO 4 % (0-6); Hematocrit 33.7 % (33.0-51.0); Hemoglobin 10.8 g/dL (11.5-16.0); IMMATURE GRAN ABSOLUTE AUTO 0.04 K/mm3 (0.00-0.10); IMMATURE GRAN PERCENT AUTO 1 % (0-1); LYMPHOCYTES ABSOLUTE AUTO 1.97 K/mm3 (0.84-5.20); LYMPHOCYTES PERCENT AUTO 23 % (21-46); MONOCYTES ABSOLUTE AUTO 0.98 K/mm3 (0.16-1.47); MONOCYTES PERCENT AUTO 11 % (4-13); Mean Corpuscular Volume 90 fL (80-100); Mean Platelet Volume 10.3 fL (9.1-12.4); NEUTROPHILS ABSOLUTE AUTO 5.35 K/mm3 (1.96-9.15); NEUTROPHILS PERCENT AUTO 61 % (41-73); Platelet Count 282 K/mm3 (150-400); RDW Coefficient Variation 13.6 % (11.7-14.2); RDW Standard Deviation 44.8 fL (35.1-46.3); Red Blood Cell Count 3.73 M/mm3 (3.80-5.20); White Blood Cell Count 8.76 K/mm3 (4.00-11.30)
[2019-09-29 01:46] LABS: Alanine Aminotransfer (ALT/SGP 23 U/L (12-78); Albumin/Globulin Ratio 0.7 (0.8-1.8); Alk Phos 171 U/L (50-136); Anion Gap 6 mmol/L (6-16); Aspartate Aminotrans (AST/SGOT 20 U/L (12-37); Bilirubin, Total 0.3 mg/dL (0.1-1.0); Blood Urea Nitrogen 16 mg/dL (8-24); Bun/Creatinine Ratio 28.6 (12.0-20.0); CO2, Blood 25 mmol/L (21-32); Calcium, Blood 8.5 mg/dL (8.5-10.1); Chloride, Blood 110 mmol/L (98-108); Creatinine, Blood 0.56 mg/dL (0.40-1.00); Globulin, Blood 4.3 g/dL (2.2-4.0); Glomerular Filtration Rate >60 (60-); Glucose, Blood 95 mg/dL (70-99); Potassium, Blood 3.9 mmol/L (3.5-5.5); Sodium, Blood 141 mmol/L (136-145); Total Protein, Blood 7.3 g/dL (6.4-8.2)
[2019-09-29] MEDS ORDERED: CEPH500 PO (03:52)
== END 2019-09-29 04:31 | disposition home or self-care (01) ==
LOC: ER 23:44
PROVIDERS: Physician Assistant
DX: L03.116 Cellulitis of left lower limb (principal); L03.115 Cellulitis of right lower limb; Z88.6 Allergy status to analgesic agent; Z79.899 Other long term (current) drug therapy; Z85.3 Personal history of malignant neoplasm of breast; F32.9 Major depressive disorder, single episode, unspecified; G47.30 Sleep apnea, unspecified
CPT/HCPCS: 36415; 73030; 73502; 80053; 83880; 84484; 85025; 93970; 99284-25; A9270-GY

== ENCOUNTER → 2021-01-16 | Outpatient (CLI) | payer OTHER ==
[~2021-01-16] MED LIST changes: +AMIT10 PO; +B-121000 MC4 PO; +CALCIUM CARBON500 M3 PO; +CEPH500 PO; +ESCITALOPRAM OX10 M1 PO; +Ferrous Sulfat325 M2 PO; +Fruity C250 MG PO; +MULTIPLE VITAM1 EACH PO; +PANT40 PO; +THERA1 EACH PO; +TRIM100 PO; +VITAMIN D35000 UNI2 PO
[2021-01-16 17:18] LABS: Appearance, Urine Clear (Clear); Bilirubin, Urine Neg (Neg); Blood, Urine Neg (Neg); Color, Urine Yellow (P-Yellow); Glucose Qualitative, Urine Neg (Neg); Ketones, Urine Neg (Neg); Leukocyte Esterase, Urine Neg (Neg); Nitrite, Urine Neg (Neg); Protein, Urine Neg (Neg); Urobilinogen, Urine NORM (Normal)
== END ==
LOC: LAB 14:52 → LAB SHORT 14:52
PROVIDERS: Nurse Practitioner Family
DX: R30.0 Dysuria (principal)
CPT/HCPCS: 81003

== ENCOUNTER 2021-11-29 16:51 | Emergency (ER) | payer OTHER ==
[~2021-11-29] VITALS: Ht 157.5 cm; Wt 68.0 kg
== END 2021-11-29 20:54 | disposition home or self-care (01) ==
LOC: ER 16:51
DX: R07.89 Other chest pain (principal); Z51.5 Encounter for palliative care; R29.810 Facial weakness; R47.1 Dysarthria and anarthria; Z88.8 Allergy status to other drugs, medicaments and biological substances; Z79.899 Other long term (current) drug therapy
CPT/HCPCS: A9270

== ENCOUNTER 2022-01-21 10:42 | Emergency (ER) | payer OTHER ==
[~2022-01-21] VITALS: Ht 157.5 cm; Wt 68.0 kg
[2022-01-21 13:56] LABS: Source, Urine Straight Cath
[2022-01-21] MEDS ORDERED: OXAYDO5 M1 PO (14:14)
[2022-01-21 14:17] LABS: Bilirubin, Urine Neg (Neg); Blood, Urine Neg (Neg); Glucose Qualitative, Urine Neg (Neg); Ketones, Urine 1+ (Neg); Leukocyte Esterase, Urine 1+ (Neg); Nitrite, Urine Neg (Neg); Protein, Urine 1+ (Neg); Specific Gravity, Urine 1.015 (1.003-1.022); Urobilinogen, Urine 3+ (Normal)
[2022-01-21 14:31] LABS: Appearance, Urine Hazy (Clear); Color, Urine Amber (P-Yellow)
[2022-01-21 14:34] LABS: Red Blood Cells, Urine 0-2 /hpf (0-2)
[2022-01-21 14:35] LABS: Bacteria Mod /hpf; Hyaline Casts 0-2 /lpf (0-2); Squamous Epithelial Cells Few /hpf (Few)
== END 2022-01-21 15:08 | disposition home or self-care (01) ==
LOC: ER 10:42
PROVIDERS: Student in an Organized Health Care Education/Training Program
DX: S70.01XA Contusion of right hip, initial encounter (principal); R10.9 Unspecified abdominal pain; W19.XXXA Unspecified fall, initial encounter; Z88.8 Allergy status to other drugs, medicaments and biological substances; Z91.018 Allergy to other foods; Z79.899 Other long term (current) drug therapy
CPT/HCPCS: 73502; 81001; A9270; J2405

== ENCOUNTER → 2022-07-30 | Outpatient (CLI) | payer OTHER ==
[~2022-07-30] MED LIST changes: +OXAYDO5 M1 PO
[2022-07-30 14:08] LABS: Source, Urine Clean Catch
[2022-07-30 15:39] LABS: Appearance, Urine Cloudy (Clear); Bilirubin, Urine Neg (Neg); Blood, Urine 2+ (Neg); Color, Urine Yellow (P-Yellow); Glucose Qualitative, Urine Neg (Neg); Ketones, Urine Neg (Neg); Leukocyte Esterase, Urine 2+ (Neg); Nitrite, Urine Neg (Neg); Protein, Urine 1+ (Neg); Urobilinogen, Urine 1+ (Normal)
[2022-07-30 15:58] LABS: White Blood Cells, Urine TNTC /hpf (0-5)
[2022-07-30 15:59] LABS: Bacteria Many /hpf; Squamous Epithelial Cells Few /hpf (Few); Transitional Epithelial Cells Few /hpf (0-Rare)
== END | disposition home or self-care (01) ==
LOC: LAB SHORT 13:00
PROVIDERS: Nurse Practitioner Family
DX: N39.0 Urinary tract infection, site not specified (principal)
CPT/HCPCS: 81001; 87077; 87086; 87186

== ENCOUNTER → 2022-12-12 | Outpatient (CLI) | payer OTHER ==
[2022-12-12 15:32] LABS: Source, Urine Voided
[2022-12-12 16:57] LABS: Appearance, Urine Cloudy (Clear); Bilirubin, Urine Neg (Neg); Blood, Urine 1+ (Neg); Color, Urine Yellow (P-Yellow); Glucose Qualitative, Urine Neg (Neg); Ketones, Urine Neg (Neg); Leukocyte Esterase, Urine 2+ (Neg); Nitrite, Urine Pos (Neg); Protein, Urine 1+ (Neg); Specific Gravity, Urine 1.015 (1.003-1.022); Urobilinogen, Urine 1+ (Normal)
[2022-12-12 17:17] LABS: White Blood Cells, Urine TNTC /hpf (0-5)
[2022-12-12 17:18] LABS: Bacteria Many /hpf; Calcium Oxalate Crystals Few /hpf; Squamous Epithelial Cells Few /hpf (Few); Transitional Epithelial Cells Few /hpf (0-Rare)
== END | disposition home or self-care (01) ==
LOC: LAB 15:31 → LAB SHORT 15:31
PROVIDERS: Nurse Practitioner Family
DX: N39.0 Urinary tract infection, site not specified (principal)
CPT/HCPCS: 81001; 87077; 87086; 87186

== ENCOUNTER → 2023-04-25 | Outpatient (CLI) | payer OTHER ==
[2023-04-25 11:03] LABS: Appearance, Urine Hazy (Clear); Bilirubin, Urine Neg (Neg); Blood, Urine 1+ (Neg); Color, Urine Yellow (P-Yellow); Glucose Qualitative, Urine Neg (Neg); Ketones, Urine Neg (Neg); Leukocyte Esterase, Urine 3+ (Neg); Nitrite, Urine Pos (Neg); Protein, Urine Neg (Neg); Specific Gravity, Urine 1.015 (1.003-1.022); Urobilinogen, Urine NORM (Normal); pH, Urine 6.5 (5.0-8.0)
[2023-04-25 11:35] LABS: Amorphous Light (0-Heavy); Bacteria Mod /hpf; Squamous Epithelial Cells Few /hpf (Few)
== END | disposition home or self-care (01) ==
LOC: LAB 09:20 → LAB SHORT 09:20
PROVIDERS: Nurse Practitioner Family
DX: N39.0 Urinary tract infection, site not specified (principal)
CPT/HCPCS: 81001; 87077; 87086; 87186

== ENCOUNTER → 2023-08-06 | Outpatient (CLI) | payer OTHER ==
[2023-08-06 14:29] LABS: Source, Urine Clean Catch
[2023-08-06 15:51] LABS: Appearance, Urine Cloudy (Clear); Bilirubin, Urine Neg (Neg); Blood, Urine 2+ (Neg); Color, Urine Yellow (P-Yellow); Glucose Qualitative, Urine Neg (Neg); Ketones, Urine Neg (Neg); Leukocyte Esterase, Urine 3+ (Neg); Nitrite, Urine Pos (Neg); Protein, Urine 2+ (Neg); Specific Gravity, Urine 1.015 (1.003-1.022); Urobilinogen, Urine NORM (Normal)
[2023-08-06 16:05] LABS: Bacteria Many /hpf; Squamous Epithelial Cells Mod /hpf (Few); White Blood Cells, Urine 25-50 /hpf (0-5)
[2023-08-06 16:06] LABS: Transitional Epithelial Cells Rare /hpf (0-Rare)
== END | disposition home or self-care (01) ==
LOC: LAB SHORT 13:50 → LAB 13:50
PROVIDERS: Nurse Practitioner Family
DX: N39.0 Urinary tract infection, site not specified (principal)
CPT/HCPCS: 81001; 87077; 87086; 87186

== ENCOUNTER → 2024-08-18 | Outpatient (CLI) | payer OTHER ==
[2024-08-18 14:22] LABS: Source, Urine Clean Catch
[2024-08-18 15:06] LABS: Appearance, Urine Hazy (Clear); Bilirubin, Urine Neg (Neg); Blood, Urine 5+ (Neg); Color, Urine Yellow (P-Yellow); Glucose Qualitative, Urine Neg (Neg); Ketones, Urine Neg (Neg); Leukocyte Esterase, Urine 2+ (Neg); Nitrite, Urine Neg (Neg); Protein, Urine 1+ (Neg); Specific Gravity, Urine 1.015 (1.003-1.022); Urobilinogen, Urine 1+ (Normal); pH, Urine 6.5 (5.0-8.0)
[2024-08-18 15:13] LABS: White Blood Cells, Urine 25-50 /hpf (0-5)
[2024-08-18 15:15] LABS: Amorphous Mod (0-Heavy); Bacteria Many /hpf; Red Blood Cells, Urine 25-50 /hpf (0-2); Squamous Epithelial Cells Few /hpf (Few)
== END | disposition home or self-care (01) ==
LOC: LAB 13:20 → LAB SHORT 13:20
PROVIDERS: Nurse Practitioner Family
DX: N39.0 Urinary tract infection, site not specified (principal)
CPT/HCPCS: 81001; 87086

== ENCOUNTER 2024-09-26 04:20 | Emergency (ER) | payer OTHER ==
[~2024-09-26] VITALS: Wt 45.4 kg
[2024-09-26 05:09] LABS: BASOPHILS ABSOLUTE AUTO 0.06 K/mm3 (0.00-0.23); BASOPHILS PERCENT AUTO 1 % (0-2); EOSINOPHILS ABSOLUTE AUTO 0.23 K/mm3 (0.00-0.68); EOSINOPHILS PERCENT AUTO 2 % (0-6); Hematocrit 28.8 % (33.0-51.0); Hemoglobin 9.5 g/dL (11.5-16.0); IMMATURE GRAN ABSOLUTE AUTO 0.03 K/mm3 (0.00-0.10); IMMATURE GRAN PERCENT AUTO 0 % (0-1); LYMPHOCYTES ABSOLUTE AUTO 1.13 K/mm3 (0.84-5.20); LYMPHOCYTES PERCENT AUTO 11 % (21-46); MONOCYTES ABSOLUTE AUTO 0.84 K/mm3 (0.16-1.47); MONOCYTES PERCENT AUTO 8 % (4-13); Mean Corpuscular HGB 28.9 pg (26.0-34.0); Mean Corpuscular Volume 88 fL (80-100); Mean Platelet Volume 11.9 fL (9.1-12.4); NEUTROPHILS ABSOLUTE AUTO 8.04 K/mm3 (1.96-9.15); NEUTROPHILS PERCENT AUTO 78 % (41-73); Platelet Count 191 K/mm3 (150-400); RDW Coefficient Variation 13.5 % (11.7-14.2); RDW Standard Deviation 42.8 fL (35.1-46.3); Red Blood Cell Count 3.29 M/mm3 (3.80-5.20); White Blood Cell Count 10.33 K/mm3 (4.00-11.30)
[2024-09-26 05:30] VITALS: BP 117/59
[2024-09-26 05:44] LABS: Albumin, Blood 2.9 g/dL (3.4-5.0); Albumin/Globulin Ratio 0.8 (0.8-1.8); Bilirubin, Total 0.5 mg/dL (0.1-1.0); Bun/Creatinine Ratio 21.9 (12.0-20.0); Calcium, Blood 9.1 mg/dL (8.5-10.1); Creatinine, Blood 0.73 mg/dL (0.40-1.00); Globulin, Blood 3.6 g/dL (2.2-4.0); Potassium, Blood 3.6 mmol/L (3.5-5.5); Total Protein, Blood 6.5 g/dL (6.4-8.2)
[2024-09-26] MEDS ORDERED: Lidocaine/Tetracaine/Epinephr 3 ML GEL SYRINGE TOP ONE (07:35)
== END 2024-09-26 12:27 | disposition home or self-care (01) ==
LOC: ER 04:20
PROVIDERS: Emergency Medicine
DX: S01.112A Laceration without foreign body of left eyelid and periocular area, initial encounter (principal); S01.01XA Laceration without foreign body of scalp, initial encounter; W01.0XXA Fall on same level from slipping, tripping and stumbling without subsequent striking against object, initial encounter; Z91.018 Allergy to other foods; Z88.6 Allergy status to analgesic agent; Z79.51 Long term (current) use of inhaled steroids; Z79.1 Long term (current) use of non-steroidal anti-inflammatories (NSAID); Z79.891 Long term (current) use of opiate analgesic
CPT/HCPCS: 12013; 70450; 72125; 73030; 80053; 82550; 85025; 99284-25